=== PATIENT | female | born 1960 | race Caucasian/White ===

== ENCOUNTER 2017-09-28 02:46 | Observation (INO) | payer BC ==
[~2017-09-28] VITALS: Ht 154.9 cm; Wt 94.3 kg
[~2017-09-28 02:46] MED LIST: ONDA4TAB10 PO
--- NOTE | 2017-09-28 03:04 | ED.ADGEN ---
Past History Past Medical History: Anxiety, Hypertension (VASYL VINES MD) Past Surgical History: , Hysterectomy (VASYL VINES MD) Alcohol Use: None Drug Use: None (VASYL VINES MD) Adult General Chief Complaint Chief Complaint " I have anxiety.." .." I ve been off my meds for about two months.." " I worried that I am going to in my sleep and my grand daughter will be all alone in the house with me in the other room.. I ve had some abd. pain. .. and nausea and 4 watery stool... ".. Now I am vomiting..." (VASYL VINES MD) HPI HPI Patient is a 43 year old female who presents with above hx and complaints of lower abd. pain with 4 episodes of diarrhea tonight. Patient reports normal brown stools before the onset of diarrhea. Patient did eat a moreno's pie at 1800 hrs. today and grand daughter ate same food with no ill effects. Denies and intake of bad food. No recent travel or specific ill contacts. Patient has been in country approximately 32 years, after immigration from [place].. Does have a history of hypertension and anxiety disorder. She has been off her depression and anxiety meds for the past 2 months. Patient normally follows with Dr. Harry. (VASYL VINES MD) Review of Systems Review of Systems Constitutional: Denies fever or chills [] Eyes: Denies change in visual acuity, redness, or eye pain [] HENT: Denies nasal congestion or sore throat [] Respiratory: Denies cough or shortness of breath [] Cardiovascular: No additional information not addressed in HPI [] GI: Complaints of abdominal pain, nausea, vomiting and diarrhea [] : Denies dysuria or hematuria [] Musculoskeletal: Denies back pain or joint pain [] Integument: Denies rash or skin lesions [] Neurologic: Denies headache, focal weakness or sensory changes [] Endocrine: Denies polyuria or polydipsia [] All other systems were reviewed and found to be within normal limits, except as documented in this note. (VASYL VINES MD) Family History Family History Noncontributory (VASYL VINES MD) Current Medications Current Medications Current Medications Medications (Trade) Dose Ordered Sig/Kenia Start Time Stop Time Status Last Admin Dose Admin Citalopram Hydrobromide (CeleXA) 20 mg 1X ONCE 09/28/17 05:00 09/28/17 05:01 DC Diphenhydramine HCl (Benadryl) 50 mg 1X ONCE 09/28/17 05:45 09/28/17 05:52 DC 09/28/17 05:40 50 MG Famotidine (Pepcid Vial) 20 mg 1X ONCE 09/28/17 03:45 09/28/17 03:46 DC 09/28/17 03:42 20 MG Iohexol (Omnipaque 240 Mg/ml) 50 ml 1X ONCE 09/28/17 04:45 09/28/17 04:46 DC 09/28/17 04:45 50 ML Iohexol (Omnipaque 300 Mg/ml) 75 ml 1X ONCE 09/28/17 04:45 09/28/17 04:46 DC 09/28/17 06:12 75 ML Lactated Ringer's 1,000 ml @ 1,000 mls/hr Q1H 09/28/17 03:30 09/28/17 04:29 DC 09/28/17 03:39 1,000 MLS/HR Lorazepam (Ativan) 2 mg 1X ONCE 09/28/17 03:45 09/28/17 03:46 DC 09/28/17 03:43 2 MG Ondansetron HCl (Zofran) 4 mg PRN Q4HRS PRN 09/28/17 07:15 09/29/17 07:14 Oxycodone/ Acetaminophen (Percocet 5/325) 2 tab 1X ONCE 09/28/17 03:45 09/28/17 03:46 DC Promethazine HCl (Phenergan Im) 25 mg 1X ONCE 09/28/17 05:45 09/28/17 05:52 DC 09/28/17 05:43 25 MG Promethazine HCl (Phenergan) 25 mg STK-MED ONCE 09/28/17 05:37 09/28/17 05:38 DC Sodium Chloride 1,000 ml @ 100 mls/hr Q10H 09/28/17 07:06 09/29/17 07:05 (CHRIS CARTAGENA MD) Allergies Allergies Allergies Coded Allergies Type Severity Reaction Last Updated Verified No Known Allergies Allergy Unknown 09/28/17 Yes (CHRIS CARTAGENA MD) Physical Exam Physical Exam Constitutional: moderate acute emotional distress, non-toxic appearance. [] HENT: Normocephalic, atraumatic, bilateral external ears normal, oropharynx moist, no oral exudates, nose normal. [] Eyes: PERRLA, EOMI, conjunctiva normal, no discharge. [] Neck: Normal range of motion, no tenderness, supple, no stridor. [] Cardiovascular: Tachycardia Heart rate regular rhythm, no murmur [] Lungs & Thorax: Bilateral breath sounds clear to auscultation [] Abdomen: Bowel sounds hyperactive, soft, mild pelvic tenderness, no masses, no pulsatile masses. Old surgical scars. Declines rectal at this time. Skin: Warm, dry, no erythema, no rash. [] Back: No tenderness, no CVA tenderness. [] Extremities: No tenderness, no cyanosis, no clubbing, ROM intact, no edema. [] Neurologic: Alert and oriented X 3, normal motor function, normal sensory function, no focal deficits noted. [] Psychologic: Affect very anxious, judgement normal, mood depressed. (VASYL VINES MD) Current Patient Data Vital Signs Vital Signs Date Time Temp Pulse Resp B/P (MAP) Pulse Ox O2 Delivery O2 Flow Rate FiO2 09/28/17 06:59 92 18 166/86 (112) 94 Room Air 09/28/17 02:46 98.1 (CHRIS CARTAGENA MD) Lab Results Laboratory Tests Test 09/28/17 03:13 09/28/17 03:18 09/28/17 03:47 Urine Collection Type Unknown Urine Color Yellow Urine Clarity Hazy Urine pH 7.5 Urine Specific [place] 1.020 Urine Protein 30 mg/dl (NEG-TRACE) Urine Glucose (UA) Neg mg/dL (NEG) Urine Ketones (Stick) Trace mg/dL (NEG) Urine Blood Neg (NEG) Urine Nitrite Neg (NEG) Urine Bilirubin Neg (NEG) Urine Urobilinogen Dipstick 1 mg/dL (0.2 mg/dL) Urine Leukocyte Esterase Neg (NEG) Urine RBC Occ /HPF (0-2) Urine WBC Occ /HPF (0-4) Urine Squamous Epithelial Cells Few /LPF Urine Amorphous Sediment Present /HPF Urine Bacteria Mod /HPF (0-FEW) Urine Mucus Slight /LPF White Blood Count 10.0 x10^3/uL (4.0-11.0) Red Blood Count 4.71 x10^6/uL (3.50-5.40) Hemoglobin 13.9 g/dL (12.0-15.5) Hematocrit 41.2 % (36.0-47.0) Mean Corpuscular Volume 88 fL (79-100) Mean Corpuscular Hemoglobin 30 pg (25-35) Mean Corpuscular Hemoglobin Concent 34 g/dL (31-37) Red Cell Distribution Width 14.0 % (11.5-14.5) Platelet Count 338 x10^3/uL (140-400) Neutrophils (%) (Auto) 85 % (31-73) H Lymphocytes (%) (Auto) 10 % (24-48) L Monocytes (%) (Auto) 4 % (0-9) Eosinophils (%) (Auto) 1 % (0-3) Basophils (%) (Auto) 1 % (0-3) Neutrophils # (Auto) 8.5 x10^3uL (1.8-7.7) H Lymphocytes # (Auto) 0.9 x10^3/uL (1.0-4.8) L Monocytes # (Auto) 0.4 x10^3/uL (0.0-1.1) Eosinophils # (Auto) 0.1 x10^3/uL (0.0-0.7) Basophils # (Auto) 0.1 x10^3/uL (0.0-0.2) Sodium Level 137 mmol/L (136-145) Potassium Level 3.8 mmol/L (3.5-5.1) Chloride Level 102 mmol/L (98-107) Carbon Dioxide Level 25 mmol/L (21-32) Anion Gap 10 (6-14) Blood Urea Nitrogen 19 mg/dL (7-20) Creatinine 0.7 mg/dL (0.6-1.0) Estimated GFR (Cockcroft-Gault) 85.6 Glucose Level 139 mg/dL (70-99) H Calcium Level 8.7 mg/dL (8.5-10.1) Total Bilirubin 0.4 mg/dL (0.2-1.0) Direct Bilirubin 0.1 mg/dL (0.0-0.2) Aspartate Amino Transferase (AST) 18 U/L (15-37) Alanine Aminotransferase (ALT) 34 U/L (14-59) Alkaline Phosphatase 89 U/L (46-116) Troponin I Quantitative < 0.017 ng/mL (0-0.055) Total Protein 7.5 g/dL (6.4-8.2) Albumin 3.8 g/dL (3.4-5.0) Lipase 159 U/L (73-393) Influenza Type A (Rapid) Negative (NEGATIVE) Influenza Type B (Rapid) Negative (NEGATIVE) (CHRIS CARTAGENA MD) Lab Results Laboratory Tests Test 09/28/17 03:13 09/28/17 03:18 09/28/17 03:47 Urine Collection Type Unknown Urine Color Yellow Urine Clarity Hazy Urine pH 7.5 Urine Specific [place] 1.020 Urine Protein 30 mg/dl (NEG-TRACE) Urine Glucose (UA) Neg mg/dL (NEG) Urine Ketones (Stick) Trace mg/dL (NEG) Urine Blood Neg (NEG) Urine Nitrite Neg (NEG) Urine Bilirubin Neg (NEG) Urine Urobilinogen Dipstick 1 mg/dL (0.2 mg/dL) Urine Leukocyte Esterase Neg (NEG) Urine RBC Occ /HPF (0-2) Urine WBC Occ /HPF (0-4) Urine Squamous Epithelial Cells Few /LPF Urine Amorphous Sediment Present /HPF Urine Bacteria Mod /HPF (0-FEW) Urine Mucus Slight /LPF White Blood Count 10.0 x10^3/uL (4.0-11.0) Red Blood Count 4.71 x10^6/uL (3.50-5.40) Hemoglobin 13.9 g/dL (12.0-15.5) Hematocrit 41.2 % (36.0-47.0) Mean Corpuscular Volume 88 fL (79-100) Mean Corpuscular Hemoglobin 30 pg (25-35) Mean Corpuscular Hemoglobin Concent 34 g/dL (31-37) Red Cell Distribution Width 14.0 % (11.5-14.5) Platelet Count 338 x10^3/uL (140-400) Neutrophils (%) (Auto) 85 % (31-73) H Lymphocytes (%) (Auto) 10 % (24-48) L Monocytes (%) (Auto) 4 % (0-9) Eosinophils (%) (Auto) 1 % (0-3) Basophils (%) (Auto) 1 % (0-3) Neutrophils # (Auto) 8.5 x10^3uL (1.8-7.7) H Lymphocytes # (Auto) 0.9 x10^3/uL (1.0-4.8) L Monocytes # (Auto) 0.4 x10^3/uL (0.0-1.1) Eosinophils # (Auto) 0.1 x10^3/uL (0.0-0.7) Basophils # (Auto) 0.1 x10^3/uL (0.0-0.2) Sodium Level 137 mmol/L (136-145) Potassium Level 3.8 mmol/L (3.5-5.1) Chloride Level 102 mmol/L (98-107) Carbon Dioxide Level 25 mmol/L (21-32) Anion Gap 10 (6-14) Blood Urea Nitrogen 19 mg/dL (7-20) Creatinine 0.7 mg/dL (0.6-1.0) Estimated GFR (Cockcroft-Gault) 85.6 Glucose Level 139 mg/dL (70-99) H Calcium Level 8.7 mg/dL (8.5-10.1) Total Bilirubin 0.4 mg/dL (0.2-1.0) Direct Bilirubin 0.1 mg/dL (0.0-0.2) Aspartate Amino Transferase (AST) 18 U/L (15-37) Alanine Aminotransferase (ALT) 34 U/L (14-59) Alkaline Phosphatase 89 U/L (46-116) Troponin I Quantitative < 0.017 ng/mL (0-0.055) Total Protein 7.5 g/dL (6.4-8.2) Albumin 3.8 g/dL (3.4-5.0) Lipase 159 U/L (73-393) Influenza Type A (Rapid) Negative (NEGATIVE) Influenza Type B (Rapid) Negative (NEGATIVE) (VASYL VINES MD) EKG EKG My interpretation EKG shows a sinus rhythm at 78 bpm. No acute morphology appreciated.[] (VASYL VINES MD) Radiology/Procedures Radiology/Procedures My interpretation acute abdomen film shows no acute cardiopulmonary findings. No free air in the diaphragm. Some increased stool. Nonspecific bowel gas pattern.[] (VASYL VINES MD) Radiology/Procedures [address] [address] IMAGING REPORT Signed PATIENT: DEBBIE WERNER ACCOUNT: [id number] : 1960 LOCATION: ER AGE: 57 SEX: F EXAM STATUS: REG ER ORD. PHYSICIAN: VASYL VINES MD REASON: abd. pain, n/v PROCEDURE: CT ABD PELV W/ORAL&IV CONTRAST CT abdomen and pelvis with contrast 09/28/2017 Clinical indication: Abdominal pain, nausea, vomiting and diarrhea. COMPARISON: None. TECHNIQUE: Multiple CT images of the abdomen and pelvis were obtained following the intravenous administration of 75 mL Omnipaque 300. *One or more of the following individualized dose reduction techniques were utilized for this examination: 1. Automated exposure control. 2. Adjustment of the mA and/or kV according to patient size. 3. Use of iterative reconstruction technique. FINDINGS: Mild cardiomegaly. Liver, gallbladder, spleen, adrenal glands, pancreas and kidneys are unremarkable. Abdominal aorta is normal in caliber. No retroperitoneal or mesenteric lymphadenopathy. There is a small hiatal hernia. The appendix is normal in appearance. There is a right periumbilical hernia containing a nonobstructed loop of the mid transverse colon and omental fat. No abdominal free fluid. No pneumoperitoneum. Mildly distended and unopacified urinary bladder is unremarkable. Prior hysterectomy. The vaginal cuff is unremarkable. No abdominal or pelvic lymphadenopathy. There is partial ankylosis of T11 and T12 vertebral bodies. There are no destructive osseous lesions. IMPRESSION: Right periumbilical hernia containing nonobstructed loop of mid transverse colon. Electronically signed by: Viktoriya Medeiros MD (09/28/2017 6:47 AM) [facility] DICTATED AND SIGNED BY: VIKTORIYA MEDEIROS MD DATE: 09/28/17 0637 CC: CORNELIA HARRY MD; VASYL VINES MD; CHRIS CARTAGENA MD ~ (CHRIS CARTAGENA MD) Course & Med Decision Making Course & Med Decision Making Pertinent Labs and Imaging studies reviewed. (See chart for details) Pt. still vomiting at 0600. Unable to tolerate contrast. Will give Phenergan and Benadryl. CT pending. Check out to Dr. Cartagena at 0600. [] (VASYL VINES MD) Course & Med Decision Making Evaluation of patient in ER showed 57-year-old female patient with nausea and vomiting and diarrhea. Patient care transferred to [place] for pending CT of abdomen that showed right inguinal hernia with fat tissue without sign of obstruction. Dr. Harry consulted at 0705 and accepted admission for observation. Patient informed about plan of care and needs for admission. (CHRIS CARTAGENA MD) Final Impression Final Impression 1. Abdomen Pain 2. Anxiety[] 3. Nausea and vomiting 4. Elevated Glucose 5. Hx. HTN Problems: (VASYL VINES MD) Dragon Disclaimer Dragon Disclaimer This electronic medical record was generated, in whole or in part, using a voice recognition dictation system. (VASYL VINES MD) Departure: Impression: Primary Impression: Acute gastroenteritis Disposition: ADMITTED INPATIENT (At 0705) Admitting Physician: Cornelia Harry (CHRIS CARTAGENA MD) Condition: IMPROVED VASYL VINES MD Sep 28, 2017 03:04 CHRIS CARTAGENA MD Sep 28, 2017 06:42
[2017-09-28] MEDS ORDERED: IV RINGERS SOLUTION,LACTATED 1,000 ML IV SCH (03:30)
[2017-09-28 03:36] LABS: BASO # 0.1 x10^3/uL (0.0-0.2); BASO % 1 % (0-3); EOS # 0.1 x10^3/uL (0.0-0.7); EOS % 1 % (0-3); HEMATOCRIT 41.2 % (36.0-47.0); HEMOGLOBIN 13.9 g/dL (12.0-15.5); LYMPH # 0.9 x10^3/uL (1.0-4.8); LYMPH % 10 % (24-48); MEAN CORPUSCULAR HEMOGLOBIN 30 pg (25-35); MEAN CORPUSCULAR HGB CONC 34 g/dL (31-37); MEAN CORPUSCULAR VOLUME 88 fL (79-100); MONO # 0.4 x10^3/uL (0.0-1.1); MONO % 4 % (0-9); NEUT # 8.5 x10^3uL (1.8-7.7); NEUT % 85 % (31-73); PLATELET COUNT 338 x10^3/uL (140-400); RED BLOOD COUNT 4.71 x10^6/uL (3.50-5.40)
[2017-09-28 03:44] LABS: BACTERIA,URINE MOD /HPF (0-FEW); BILIRUBIN,URINE NEG (NEG); CLARITY,URINE HAZY; COLOR,URINE YELLOW; GLUCOSE,URINE NEG (NEG); NITRITE,URINE NEG (NEG); RBC,URINE OCC /HPF (0-2); SQUAMOUS EPITHELIAL CELL,UR FEW /LPF; UROBILINOGEN,URINE 1 mg/dL (0.2 mg/dL); WBC,URINE OCC /HPF (0-4)
[2017-09-28 03:45] LABS: AMORPHOUS SEDIMENT,UR PRESENT /HPF
[2017-09-28] MEDS ORDERED: ONDANSETRON PF 4 MG/2 ML VIAL. IV ONE ×2 (03:45→04:30)
[2017-09-28] MEDS ORDERED: oxyCODONE/APAP 5/325 1 TAB TABLET PO ONE (03:45)
[2017-09-28] MEDS ORDERED: FAMOTIDINE 20 MG/2 ML VIAL IVP ONE (03:45)
[2017-09-28] MEDS ORDERED: LORazepam 2 MG/ML VIAL IV ONE (03:45)
[2017-09-28 03:48] LABS: ALBUMIN 3.8 g/dL (3.4-5.0); CALCIUM 8.7 mg/dL (8.5-10.1); CREATININE 0.7 mg/dL (0.6-1.0); DIRECT BILIRUBIN 0.1 mg/dL (0.0-0.2); GFR 85.6; POTASSIUM 3.8 mmol/L (3.5-5.1); TOTAL BILIRUBIN 0.4 mg/dL (0.2-1.0); TOTAL PROTEIN 7.5 g/dL (6.4-8.2)
[2017-09-28 04:31] LABS: INFLUENZA A PATIENT NEGATIVE (NEGATIVE); INFLUENZA B PATIENT NEGATIVE (NEGATIVE)
--- NOTE | 2017-09-28 04:37 | EKG ---
[address] [address] Test Date: 2017-09-28 Test Time: 03:35:51 Pat Name: DEBBIE WERNER Department: Room: Gender: F Rn Social Work: : 1960 Requested By: VASYL VINES Order Number: [id number] Reading MD: Measurements Intervals [place] Rate: 78 P: 46 NM: 168 QRS: 27 QRSD: 86 T: 21 QT: 374 QTc: 430 Interpretive Statements SINUS RHYTHM NORMAL ECG RI6.01 No previous ECG available for comparison
[2017-09-28] MEDS ORDERED: IOHEXOL 300 MG/ML 75 ML VIAL. IV ONE (04:45)
[2017-09-28] MEDS ORDERED: IOHEXOL 240 MG/ML 50ML VIAL. PO ONE (04:45)
[2017-09-28] MEDS ORDERED: CITALOPRAM 20 MG TABLET. PO ONE (05:00)
[2017-09-28] MEDS ORDERED: PROMETHAZINE 25 MG/ML VIAL IV ONE (05:37)
[2017-09-28] MEDS ORDERED: diphenhydrAMINE 50 MG/ML VIAL IVP ONE (05:45)
[2017-09-28] MEDS ORDERED: PROMETHAZINE IM 25 MG/ML VIAL IM ONE (05:45)
--- NOTE | 2017-09-28 06:50 | RAD ---
CT abdomen and pelvis with contrast 09/28/2017 Clinical indication: Abdominal pain, nausea, vomiting and diarrhea. COMPARISON: None. TECHNIQUE: Multiple CT images of the abdomen and pelvis were obtained following the intravenous administration of 75 mL Omnipaque 300. *One or more of the following individualized dose reduction techniques were utilized for this examination: 1. Automated exposure control. 2. Adjustment of the mA and/or kV according to patient size. 3. Use of iterative reconstruction technique. FINDINGS: Mild cardiomegaly. Liver, gallbladder, spleen, adrenal glands, pancreas and kidneys are unremarkable. Abdominal aorta is normal in caliber. No retroperitoneal or mesenteric lymphadenopathy. There is a small hiatal hernia. The appendix is normal in appearance. There is a right periumbilical hernia containing a nonobstructed loop of the mid transverse colon and omental fat. No abdominal free fluid. No pneumoperitoneum. Mildly distended and unopacified urinary bladder is unremarkable. Prior hysterectomy. The vaginal cuff is unremarkable. No abdominal or pelvic lymphadenopathy. There is partial ankylosis of T11 and T12 vertebral bodies. There are no destructive osseous lesions. IMPRESSION: Right periumbilical hernia containing nonobstructed loop of mid transverse colon. Electronically signed by: Nic Medeiros MD (09/28/2017 6:47 AM) [facility]
[2017-09-28] MEDS ORDERED: IV NORMAL SALINE 1,000ML 1,000 ML IV SCH (07:06)
[2017-09-28] MEDS ORDERED: ONDANSETRON PF 4 MG/2 ML VIAL. IV PRN (07:15)
--- NOTE | 2017-09-28 07:23 | RAD ---
Acute abdomen series with chest, 3 views, 09/28/2017: History: Abdominal pain, nausea and vomiting The abdominal gas pattern is unremarkable without evidence of obstruction. No free air is present in the abdomen. There is no evidence of organomegaly. There is a small radiopacity projected over the right paraspinous region. The subsequent CT study shows that this is a phlebolith rather than a ureteral calculus. There are mild scattered degenerative changes in the spine. The heart size is normal. The lungs are clear. IMPRESSION: No acute abdominal abnormality is detected.
[2017-09-28] MEDS ORDERED: VENLAFAXINE XR 37.5 MG CAP.ER.24H. PO SCH (09:00)
[2017-09-28] MEDS ORDERED: LORazepam 0.5 MG TABLET PO PRN (09:00)
--- NOTE | 2017-09-28 09:35 | HP ---
ADMIT DATE: 09/28/2017 HISTORY OF PRESENT ILLNESS: A 57-year-old female came in through the Emergency Room. The patient states she has been off her medications last 2 weeks, she has been having extreme anxiety attacks, feeling that she is going to in her sleep and leave her granddaughter alone. She did have some nausea, vomiting and diarrhea 4 episodes thereof, but she is extremely anxious, apparently an immigrant. She is an immigrant from [place], although it has been 32 years. She still has somewhat of a [place] accent. Has a history of hypertension and anxiety. PAST MEDICAL HISTORY: Positive for anxiety and hypertension. She has not listed any home medications. ALLERGIES: She has no known allergies. SOCIAL HISTORY: The patient denies smoking, alcohol or drug use. She is a full code. FAMILY HISTORY: Positive for heart disease. PAST SURGICAL HISTORY: and hysterectomy. REVIEW OF SYSTEMS: Denies chest pain, shortness of breath. Denies headaches, visual change, blurred vision, double vision. Does have nausea, vomiting but that is relieved. The patient does have some abdominal discomfort with diarrhea. Neurologically, the patient is stable there, baseline with anxiety. PHYSICAL EXAMINATION: VITAL SIGNS: The patient's blood pressure anywhere from 166-184, respiratory rate 18, pulse 93, oxygen saturation anywhere from 100 down to 93, afebrile. HEENT: The patient's head was atraumatic, normocephalic. Eyes, PERRLA without jaundice. Mouth and throat: Poor dentition. NECK: Supple without JVD or thyromegaly. LUNGS: Diminished throughout, poor movement of air. CARDIOVASCULAR: Regular sinus rhythm, S1, S2, without murmur, rub, thrill, or extra heart sound. ABDOMEN: Soft, nontender, protuberant, but no rebounding or guarding. Positive bowel sounds, no hepatosplenomegaly was noted. EXTREMITIES: No clubbing, cyanosis or edema. NEUROLOGIC: The patient was alert and oriented x 3, somewhat anxious appearing. Denies depression, denies any suicidal or homicidal ideation. LABORATORY DATA: The patient's CBC was basically all within normal limits. Chemistries were within normal limits. Cardiac enzymes negative. D-dimer, TSH pending. UA unremarkable. Serology negative. IMPRESSION: Severe anxiety attack, possible gastroenteritis, viral syndrome. PLAN: The patient will be started on some Effexor XR, lorazepam, wait for other tests to be performed and see whether or not we find an obvious answer for her anxiety attacks medically speaking. CORNELIA HARRY MD DR: MYRIAM/fely JOB#: [id number] / [id number]
[2017-09-28 11:27] VITALS: BP 152/96
[2017-09-28] MEDS ORDERED: LISI-334 PO (11:54)
[2017-09-28] MEDS ORDERED: FLUT16SP21 NAS (11:54)
[2017-09-28] MEDS ORDERED: CITA20TA5 PO (11:54)
--- NOTE | 2017-09-28 13:00 | NUR ---
The patient, DEBBIE WERNER, 57 y/o, F admitted by CORNELIA HARRY MD, was given written information regarding hospital policies, unit procedures and contact persons. Patient admitted to room 117 from the ED and arrived at approx. 0900 via EMS. Valuables were checked and left in room with patient. Vital signs assessed and patient oriented to the room.
--- NOTE | 2017-09-28 13:14 | NUR ---
Discharge Note: SANDEEP WERNER Discharge instructions and discharge home medications reviewed with Patient and a copy given. All questions have been answered and understanding verbalized. The following instructions and handouts were given: MEDICATIONS, FOLLOW UP INSTRUCTIONS, AND EDUCATIONAL HANDOUTS GIVEN. Discontinued lines and drains: PERIPHERAL IV DISCONTINUED WITH NO COMPLICATIONS. Patient discharged to HOME with SON via PRIVATE FAMILY VEHICLE.
[2017-09-28] MEDS ORDERED: HEPARIN PF for SUB-Q USE 5,000 UNIT/0.5 ML VIAL. SQ SCH (14:00)
== END 2017-09-28 13:10 | disposition home or self-care (01) ==
LOC: ER 02:46 → 1 SOUTH 07:25
PROVIDERS: ADMIT Family Medicine; ATTEND Family Medicine
DX: F41.1 Generalized anxiety disorder (principal); I10 Essential (primary) hypertension; Z90.710 Acquired absence of both cervix and uterus; Z82.49 Family history of ischemic heart disease and other diseases of the circulatory system
CPT/HCPCS: 36415; 74022; 74177; 80048; 80076; 81001; 83690; 84443; 84484; 85025; 85379; 87086; 87804; 93005; 96361; 96372; 96374; 96375; 96376; 99285; G0378; J1200; J2060; J2405; J2550; J7120; Q9966; Q9967; S0028; G0379; J7030

== ENCOUNTER → 2018-06-18 | Day surgery (SDC) | payer BC ==
[~2018-06-18] MED LIST changes: +ALBU8.5H8 INH; +ALBUTEROL SULFATE 2.5 MG/3 ML NEBU. NEB PRN; +ATROPINE 0.5 MG/5 ML DISP.SYRIN. IV PRN; +CETI10TA22 PO; +CITA20TA6 PO; +FLUT16SP21 NAS; +IV RINGERS SOLUTION,LACTATED 1,000 ML IV SCH; +LIDOCAINE 2% PF Vial for OR 5 ML VIAL. ONE; +LISI-334 PO; +NALOXONE 0.4 MG/ML VIAL. IV PRN; +ONDANSETRON PF 4 MG/2 ML VIAL. IV PRN; +PROPOFOL 40 ML IV ONE
[2018-06-18 16:28] VITALS: BP 143/89
== END | disposition home or self-care (01) ==
LOC: SURG 13:46
PROVIDERS: ATTEND Internal Medicine Gastroenterology
DX: K22.2 Esophageal obstruction (principal); K22.8 Other specified diseases of esophagus; Z79.899 Other long term (current) drug therapy; I10 Essential (primary) hypertension; F41.1 Generalized anxiety disorder; Z87.442 Personal history of urinary calculi; M19.90 Unspecified osteoarthritis, unspecified site; Z90.710 Acquired absence of both cervix and uterus; Z98.890 Other specified postprocedural states; Z82.0 Family history of epilepsy and other diseases of the nervous system; Z72.89 Other problems related to lifestyle; Z88.8 Allergy status to other drugs, medicaments and biological substances; Z91.010 Allergy to peanuts
CPT/HCPCS: 43239; 43249; J7120; 43450

== ENCOUNTER 2019-09-03 21:27 | Emergency (ER) | payer BC ==
[~2019-09-03] VITALS: Ht 154.9 cm; Wt 94.6 kg
[~2019-09-03 21:27] MED LIST changes: +ALBU2.5V8 INH; -ALBU8.5H8 INH; -ALBUTEROL SULFATE 2.5 MG/3 ML NEBU. NEB PRN; -ATROPINE 0.5 MG/5 ML DISP.SYRIN. IV PRN; -CETI10TA22 PO; +CETI10TA24 PO; -IV RINGERS SOLUTION,LACTATED 1,000 ML IV SCH; -LIDOCAINE 2% PF Vial for OR 5 ML VIAL. ONE; -NALOXONE 0.4 MG/ML VIAL. IV PRN; -ONDANSETRON PF 4 MG/2 ML VIAL. IV PRN; -PROPOFOL 40 ML IV ONE
[2019-09-03] MEDS ORDERED: IV NORMAL SALINE 1,000ML 1,000 ML IV SCH (21:47)
[2019-09-03] MEDS ORDERED: ONDANSETRON PF 4 MG/2 ML VIAL. IVP ONE (22:00)
[2019-09-03 22:20] LABS: BASO # 0.1 x10^3/uL (0.0-0.2); BASO % 1 % (0-3); EOS # 0.3 x10^3/uL (0.0-0.7); EOS % 5 % (0-3); HEMATOCRIT 41.4 % (36.0-47.0); HEMOGLOBIN 13.5 g/dL (12.0-15.5); LYMPH # 1.3 x10^3/uL (1.0-4.8); LYMPH % 22 % (24-48); MEAN CORPUSCULAR HEMOGLOBIN 29 pg (25-35); MEAN CORPUSCULAR HGB CONC 33 g/dL (31-37); MEAN CORPUSCULAR VOLUME 88 fL (79-100); MONO # 0.6 x10^3/uL (0.0-1.1); MONO % 10 % (0-9); NEUT # 3.7 x10^3uL (1.8-7.7); NEUT % 63 % (31-73); PLATELET COUNT 300 x10^3/uL (140-400); RED BLOOD COUNT 4.72 x10^6/uL (3.50-5.40); RED CELL DISTRIBUTION WIDTH 14.1 % (11.5-14.5); WHITE BLOOD COUNT 5.8 x10^3/uL (4.0-11.0)
[2019-09-03 22:28] LABS: ALBUMIN 3.5 g/dL (3.4-5.0); ALBUMIN/GLOBULIN RATIO 1.1 (1.0-1.7); CALCIUM 8.6 mg/dL (8.5-10.1); CREATININE 0.9 mg/dL (0.6-1.0); GFR 63.9; TOTAL BILIRUBIN 0.2 mg/dL (0.2-1.0); TOTAL PROTEIN 6.7 g/dL (6.4-8.2)
[2019-09-03 22:58] LABS: CLARITY,URINE CLEAR; COLOR,URINE YELLOW
[2019-09-03 22:59] LABS: BACTERIA,URINE 0 /HPF (0-FEW); BILIRUBIN,URINE NEG (NEG); GLUCOSE,URINE NEG (NEG); NITRITE,URINE NEG (NEG); RBC,URINE 0 /HPF (0-2); SQUAMOUS EPITHELIAL CELL,UR OCC /LPF; UROBILINOGEN,URINE 0.2 mg/dL (0.2 mg/dL); WBC,URINE OCC /HPF (0-4)
[2019-09-03] MEDS ORDERED: CONTRAST GIVEN MC PRN (23:30)
[2019-09-03] MEDS ORDERED: IOHEXOL 300 MG/ML 75 ML VIAL. IV ONE (23:45)
--- NOTE | 2019-09-04 00:03 | RAD ---
EXAM: CT Abdomen and Pelvis with IV contrast CLINICAL HISTORY: Lower abdomen pain, nausea, diarrhea. COMPARISON: 09/28/2017 TECHNIQUE: Helical CT of the abdomen and pelvis was performed following the administration of intravenous contrast. Oral contrast was administered. Axial, coronal and sagittal reformatted images were generated. PQRS compliance statement - One or more of the following individualized dose reduction techniques were utilized for this study: 1. Automated exposure control 2. Adjustment of the mA and/or kV according to patient size 3. Use of iterative reconstruction technique FINDINGS: Respiratory motion artifact limits evaluation. Lower chest: Linear opacities in the lower lobes likely scarring/atelectasis. Abdomen and Pelvis: No focal liver lesion. Liver is borderline enlarged measuring 18.6 cm in length. Gallbladder is contracted. No biliary duct dilatation. Pancreas is unremarkable. Spleen is normal in appearance. Adrenal glands are unremarkable. Symmetric nephrograms. No focal renal lesion. No hydronephrosis. No hydroureter. Bladder is unremarkable. Moderate colonic stool content is seen. Appendix is normal. No bowel obstruction. There is a ventral abdominal hernia containing a segment of transverse colon and fat, base of the hernia measures approximately 3.5 cm in diameter. Infiltration is seen about the herniated segment of transverse colon without associated pneumatosis, focal ascites or free intraperitoneal gas. No abdominal or pelvic ascites. Bones: Bone [place] right acetabulum. Degenerative changes of the spine are seen. T11-12 fusion is seen, likely congenital/developmental. IMPRESSION: 1. Inflammatory changes are seen about the herniated segment of transverse colon, without associated pneumatosis, ascites or free intraperitoneal gas. This can be correlated with examination for possible incarceration. 2. No bowel obstruction. 3. Borderline hepatomegaly. Electronically signed by: Frank Cunningham MD (09/04/2019 12:00 AM) [id number]
[2019-09-04 00:15] VITALS: BP 159/72
--- NOTE | 2019-09-04 00:50 | PHYS DOC ---
Past History Past Medical History: Anxiety, Hypertension Past Surgical History: , Hysterectomy Alcohol Use: None Drug Use: None Adult General Chief Complaint Chief Complaint: ABDOMINAL PAIN HPI HPI Patient is a 58-year-old female who presents with complaint of abdominal pain and cramping that started yesterday. Patient indicates that pain is right in deep. Umbilical region. She rates pain at a 7 out of 10. She states that she has had some nausea but no vomiting. She also indicates that she's had no episode of loose stool. She denies any fever. Patient states the pain is worsened with movement. She states that nothing improves the pain.[] Review of Systems Review of Systems Constitutional: Denies fever or chills [] Respiratory: Denies cough or shortness of breath [] Cardiovascular: No additional information not addressed in HPI [] GI: Complains of abdominal pain with nausea. Denies vomiting. Admits to loose stool 1[] Integument: Denies rash or skin lesions [] Neurologic: Denies headache, focal weakness or sensory changes [] All other systems were reviewed and found to be within normal limits, except as documented in this note. Current Medications Current Medications Current Medications Medications (Trade) Dose Ordered Sig/Kenia Start Time Stop Time Status Last Admin Dose Admin Fentanyl Citrate (Fentanyl 2ml Vial) 50 mcg 1X ONCE 09/03/19 22:00 09/03/19 22:15 DC 09/03/19 22:06 50 MCG Info (Do NOT chart on this entry -- for MONITORING) 1 each PRN DAILY PRN 09/03/19 23:30 09/05/19 23:29 Iohexol (Omnipaque 300 Mg/ml) 75 ml 1X ONCE 09/03/19 23:45 09/03/19 23:46 DC 09/03/19 23:33 75 ML Ondansetron HCl (Zofran) 4 mg 1X ONCE 09/03/19 22:00 09/03/19 22:01 DC 09/03/19 22:05 4 MG Sodium Chloride 1,000 ml @ 1,000 mls/hr Q1H 09/03/19 21:47 09/03/19 22:46 DC 09/03/19 22:04 1,000 MLS/HR Allergies Allergies Allergies Coded Allergies Type Severity Reaction Last Updated Verified Estrogens Allergy Intermediate 09/03/19 Yes peanut Allergy Intermediate Rash 09/28/17 Yes Physical Exam Physical Exam Constitutional: Well developed, well nourished, no acute distress, non-toxic appearance. [] HENT: Normocephalic, atraumatic, bilateral external ears normal, oropharynx moist, no oral exudates, nose normal. [] Eyes: PERRLA, EOMI, conjunctiva normal, no discharge. [] Neck: Normal range of motion, no tenderness, supple, no stridor. [] Cardiovascular: Regular rate and rhythm[] Lungs & Thorax: Bilateral breath sounds clear to auscultation [] Abdomen: Bowel sounds normal, soft, with periumbilical tenderness. [] Skin: Warm, dry, no erythema, no rash. [] Extremities: No tenderness, no cyanosis, no clubbing, ROM intact. [] Neurologic: Alert and oriented X 3, no focal deficits noted. [] Current Patient Data Vital Signs Vital Signs Date Time Temp Pulse Resp B/P (MAP) Pulse Ox O2 Delivery O2 Flow Rate FiO2 09/04/19 00:15 72 16 159/72 (101) 98 Room Air 09/03/19 21:34 98.4 Lab Results Laboratory Tests Test 09/03/19 21:54 09/03/19 22:02 White Blood Count 5.8 x10^3/uL (4.0-11.0) Red Blood Count 4.72 x10^6/uL (3.50-5.40) Hemoglobin 13.5 g/dL (12.0-15.5) Hematocrit 41.4 % (36.0-47.0) Mean Corpuscular Volume 88 fL (79-100) Mean Corpuscular Hemoglobin 29 pg (25-35) Mean Corpuscular Hemoglobin Concent 33 g/dL (31-37) Red Cell Distribution Width 14.1 % (11.5-14.5) Platelet Count 300 x10^3/uL (140-400) Neutrophils (%) (Auto) 63 % (31-73) Lymphocytes (%) (Auto) 22 % (24-48) L Monocytes (%) (Auto) 10 % (0-9) H Eosinophils (%) (Auto) 5 % (0-3) H Basophils (%) (Auto) 1 % (0-3) Neutrophils # (Auto) 3.7 x10^3uL (1.8-7.7) Lymphocytes # (Auto) 1.3 x10^3/uL (1.0-4.8) Monocytes # (Auto) 0.6 x10^3/uL (0.0-1.1) Eosinophils # (Auto) 0.3 x10^3/uL (0.0-0.7) Basophils # (Auto) 0.1 x10^3/uL (0.0-0.2) Sodium Level 142 mmol/L (136-145) Potassium Level 4.0 mmol/L (3.5-5.1) Chloride Level 106 mmol/L (98-107) Carbon Dioxide Level 27 mmol/L (21-32) Anion Gap 9 (6-14) Blood Urea Nitrogen 18 mg/dL (7-20) Creatinine 0.9 mg/dL (0.6-1.0) Estimated GFR (Cockcroft-Gault) 63.9 BUN/Creatinine Ratio 20 (6-20) Glucose Level 116 mg/dL (70-99) H Calcium Level 8.6 mg/dL (8.5-10.1) Total Bilirubin 0.2 mg/dL (0.2-1.0) Aspartate Amino Transferase (AST) 16 U/L (15-37) Alanine Aminotransferase (ALT) 21 U/L (14-59) Alkaline Phosphatase 76 U/L (46-116) Total Protein 6.7 g/dL (6.4-8.2) Albumin 3.5 g/dL (3.4-5.0) Albumin/Globulin Ratio 1.1 (1.0-1.7) Lipase 196 U/L (73-393) Urine Collection Type Unknown Urine Color Yellow Urine Clarity Clear Urine pH 7.0 Urine Specific [place] >=1.030 Urine Protein Neg (NEG-TRACE) Urine Glucose (UA) Neg mg/dL (NEG) Urine Ketones (Stick) Neg mg/dL (NEG) Urine Blood Neg (NEG) Urine Nitrite Neg (NEG) Urine Bilirubin Neg (NEG) Urine Urobilinogen Dipstick 0.2 mg/dL (0.2 mg/dL) Urine Leukocyte Esterase Neg (NEG) Urine RBC 0 /HPF (0-2) Urine WBC Occ /HPF (0-4) Urine Squamous Epithelial Cells Occ /LPF Urine Bacteria 0 /HPF (0-FEW) EKG EKG [] Radiology/Procedures Radiology/Procedures [] Impressions: PROCEDURE: CT ABD PELV W/ IV CONTRST ONLY EXAM: CT Abdomen and Pelvis with IV contrast CLINICAL HISTORY: Lower abdomen pain, nausea, diarrhea. COMPARISON: 09/28/2017 TECHNIQUE: Helical CT of the abdomen and pelvis was performed following the administration of intravenous contrast. Oral contrast was administered. Axial, coronal and sagittal reformatted images were generated. PQRS compliance statement - One or more of the following individualized dose reduction techniques were utilized for this study: 1. Automated exposure control 2. Adjustment of the mA and/or kV according to patient size 3. Use of iterative reconstruction technique FINDINGS: Respiratory motion artifact limits evaluation. Lower chest: Linear opacities in the lower lobes likely scarring/atelectasis. Abdomen and Pelvis: No focal liver lesion. Liver is borderline enlarged measuring 18.6 cm in length. Gallbladder is contracted. No biliary duct dilatation. Pancreas is unremarkable. Spleen is normal in appearance. Adrenal glands are unremarkable. Symmetric nephrograms. No focal renal lesion. No hydronephrosis. No hydroureter. Bladder is unremarkable. Moderate colonic stool content is seen. Appendix is normal. No bowel obstruction. There is a ventral abdominal hernia containing a segment of transverse colon and fat, base of the hernia measures approximately 3.5 cm in diameter. Infiltration is seen about the herniated segment of transverse colon without associated pneumatosis, focal ascites or free intraperitoneal gas. No abdominal or pelvic ascites. Bones: Bone island right acetabulum. Degenerative changes of the spine are seen. T11-12 fusion is seen, likely congenital/developmental. IMPRESSION: 1. Inflammatory changes are seen about the herniated segment of transverse colon, without associated pneumatosis, ascites or free intraperitoneal gas. This can be correlated with examination for possible incarceration. 2. No bowel obstruction. 3. Borderline hepatomegaly. Electronically signed by: Frank Selby MD (09/04/2019 12:00 AM) [facility] DICTATED AND SIGNED BY: FRANK SELBY MD DATE: 09/04/19 0000 CC: SHERMAN SALDANA Jr. DO; CORNELIA HARRY MD ~ Course & Med Decision Making Course & Med Decision Making Pertinent Labs and Imaging studies reviewed. (See chart for details) [] Dragon Disclaimer Dragon Disclaimer This electronic medical record was generated, in whole or in part, using a voice recognition dictation system. Departure Departure: Impression: Primary Impression: Incarcerated ventral hernia Disposition: 02 XFER SHT-TRM [facility] Admitting Physician: Kerri Banda Condition: IMPROVED Referrals: CORNELIA HARRY MD (PCP) SHERMAN SALDANA Jr. DO Sep 04, 2019 00:50
== END 2019-09-04 01:33 | disposition short-term general hospital (02) ==
LOC: ER 21:27
DX: K43.6 Other and unspecified ventral hernia with obstruction, without gangrene (principal); R11.0 Nausea; R19.7 Diarrhea, unspecified; F41.9 Anxiety disorder, unspecified; I10 Essential (primary) hypertension; Z90.710 Acquired absence of both cervix and uterus; Z98.890 Other specified postprocedural states; Z91.010 Allergy to peanuts; Z88.2 Allergy status to sulfonamides
CPT/HCPCS: 36415; 74177; 80053; 81001; 83690; 85025; 96361; 96374; 96375; 99285; J2405; J3010; Q9967; J7030

== ENCOUNTER 2021-01-06 01:10 | Emergency (ER) | payer BC, OTHER ==
[~2021-01-06] VITALS: Ht 154.9 cm; Wt 81.4 kg
[~2021-01-06 01:10] MED LIST changes: -CETI10TA24 PO; +CETI10TA74 PO; -LISI-334 PO; +LISI20TA18 PO
--- NOTE | 2021-01-06 01:40 | PHYS DOC ---
Past History Past Medical History: Anxiety, Hypertension Past Surgical History: , Hysterectomy Alcohol Use: None Drug Use: None General Adult EDM: Chief Complaint: NAUSEA/VOMITING/DIARRHEA HPI: HPI: 60-year-old female presents with diarrhea, vomiting, abdominal pain. She states that this started prior to arrival. She has had one episode of diarrhea and two episodes of vomiting. She feels very anxious. She tells me that she has problems with anxiety. Her abdominal pain is a sharp sensation in the epigastric area. Her only abdominal surgical history is a hernia repair. She does not member exactly where it was. She denies fever or chills. No one else at home is sick. Review of Systems: Review of Systems: Constitutional: Denies fever or chills Eyes: Denies change in visual acuity HENT: Denies nasal congestion or sore throat Respiratory: Denies cough or shortness of breath Cardiovascular: Denies chest pain or edema GI: Epigastric abdominal pain, nausea, vomiting, nonbloody diarrhea : Denies dysuria. Decreased urination Musculoskeletal: Denies back pain or joint pain Integument: Denies rash Neurologic: Denies headache, focal weakness or sensory changes Endocrine: Denies polyuria or polydipsia Lymphatic: Denies swollen glands Psychiatric: Anxiety Current Medications: Current Meds: Current Medications Medications (Trade) Dose Ordered Sig/Kenia Start Time Stop Time Status Last Admin Dose Admin Diphenhydramine HCl (Benadryl) 25 mg 1X ONCE 01/06/21 02:00 01/06/21 02:01 Lorazepam (Ativan Inj) 2 mg 1X ONCE 01/06/21 02:00 01/06/21 02:01 Ondansetron HCl (Zofran) 4 mg 1X ONCE 01/06/21 02:00 01/06/21 02:01 Sodium Chloride 1,000 ml @ 1,000 mls/hr 1X ONCE 01/06/21 02:00 01/06/21 02:59 Allergies: Allergies: Allergies Coded Allergies Type Severity Reaction Last Updated Verified Estrogens Allergy Intermediate 09/03/19 Yes peanut Allergy Intermediate Rash 09/28/17 Yes Physical Exam: PE: Constitutional: Well developed, well nourished, obese, no acute distress, non- toxic appearance. [] HENT: Normocephalic, atraumatic, bilateral external ears normal, oropharynx moist, no oral exudates, nose normal. [] Eyes: PERRLA, EOMI, conjunctiva normal, no discharge. [] Neck: Normal range of motion, no tenderness, supple, no stridor. [] Cardiovascular: Heart rate 80, regular rhythm, no murmur [] Lungs & Thorax: Bilateral breath sounds clear to auscultation [] Abdomen: Bowel sounds normal, soft, mild epigastric tenderness, no masses, no pulsatile masses. [] Skin: Warm, dry, no erythema, no rash. [] Back: No tenderness, no CVA tenderness. [] Extremities: No tenderness, no cyanosis, no clubbing, ROM intact, no edema. [] Neurologic: Alert and oriented X 3, normal motor function, normal sensory function, no focal deficits noted. [] Psychologic: Affect normal, judgement normal, mood anxious. [] EKG: EKG: Sinus rhythm, rate 81, normal axis, no ST elevation or depression. [] Radiology/Procedures: Radiology/Procedures: [] Impressions: EXAM: AP View of the chest DATE: 01/06/2021 1:26 AM INDICATION: Reason: SOB / Spl. Instructions: / History: COMPARISON: No Prior FINDINGS: The heart is not enlarged. Mediastinal and hilar contours are normal. Patchy opacities left lung base likely atelectasis. No pleural effusion or pneumothorax. IMPRESSION: Patchy opacities left lung base likely atelectasis. Electronically signed by: Frank Cunningham MD (01/06/2021 1:56 AM) [facility] DI[facility]ATED AND SIGNED BY: FRANK CUNNINGHAM MD DATE: 01/06/21 0155 CC: LATOYA NAZARIO DO; CORNELIA HARRY MD ~MTH0 0 Heart Score: C/O Chest Pain: N/A Risk Factors: Risk Factors: DM, Current or recent (<one month) smoker, HTN, HLP, family history of CAD, obesity. Risk Scores: Score 0 - 3: 2.5% MACE over next 6 weeks - Discharge Home Score 4 - 6: 20.3% MACE over next 6 weeks - Admit for Clinical Observation Score 7 - 10: 72.7% MACE over next 6 weeks - Early Invasive Strategies Course & Med Decision Making: Course & Med Decision Making Pertinent Labs and Imaging studies reviewed. (See chart for details) I have ordered 1 L normal saline, 4 mg of Zofran, 25 mg of Benadryl, add 2 mg of Ativan IV. The patient's labs are unremarkable. Her EKG is unremarkable. Troponin is negative. Chest x-ray shows atelectasis. See official read for more details. CT of the abdomen and pelvis shows periumbilical hernias. 1 has a loop of bowel in it but no evidence of obstruction. See official read for more details. Patient's urinalysis is negative for infection. I suspect the patient's discomfort is related to her hernia. I have made her aware of this and told her she should consider surgical consultation. She will follow-up with her primary care physician. She is stable for discharge at this time. [] Dragon Disclaimer: Dragleslie Disclaimer: This electronic medical record was generated, in whole or in part, using a voice recognition dictation system. Departure Departure: Impression: Primary Impression: Ventral hernia Qualified Codes: K43.9 - Ventral hernia without obstruction or gangrene Additional Impressions: Abdominal pain Qualified Codes: R10.13 - Epigastric pain Anxiety Disposition: 01 HOME / SELF CARE / HOMELESS Condition: STABLE Referrals: CORNELIA HARRY MD (PCP) Patient Instructions: Hernia, [id number] LATOYA NAZARIO DO Jan 06, 2021 01:40
[2021-01-06] MEDS: IV NORMAL SALINE 1,000ML 1,000 ML IV ONE (01:54)
[2021-01-06] MEDS: diphenhydrAMINE 50 MG/ML VIAL IVP ONE (01:58)
--- NOTE | 2021-01-06 01:58 | RAD ---
EXAM: AP View of the chest DATE: 01/06/2021 1:26 AM INDICATION: Reason: SOB / Spl. Instructions: / History: COMPARISON: No Prior FINDINGS: The heart is not enlarged. Mediastinal and hilar contours are normal. Patchy opacities left lung base likely atelectasis. No pleural effusion or pneumothorax. IMPRESSION: Patchy opacities left lung base likely atelectasis. Electronically signed by: Frank Cunningham MD (01/06/2021 1:56 AM) DAVID
[2021-01-06] MEDS: ONDANSETRON PF 4 MG/2 ML VIAL. IVP ONE (01:59)
[2021-01-06] MEDS ORDERED: CONTRAST GIVEN. MC PRN (02:00)
[2021-01-06 02:08] LABS: HEMOGLOBIN ISTAT 13.9 gm/dL; POTASSIUM ISTAT 3.3 mmol/L (3.5-5.0)
[2021-01-06 02:08] LABS: BASO # 0.1 x10^3/uL (0.0-0.2); BASO % 1 % (0-3); EOS # 0.4 x10^3/uL (0.0-0.7); EOS % 3 % (0-3); HEMATOCRIT 42.4 % (36.0-47.0); LYMPH # 2.7 x10^3/uL (1.0-4.8); LYMPH % 20 % (24-48); MEAN CORPUSCULAR HEMOGLOBIN 29 pg (25-35); MEAN CORPUSCULAR HGB CONC 33 g/dL (31-37); MEAN CORPUSCULAR VOLUME 88 fL (79-100); MONO % 7 % (0-9); NEUT # 9.6 x10^3uL (1.8-7.7); NEUT % 70 % (31-73); PLATELET COUNT 340 x10^3/uL (140-400); WHITE BLOOD COUNT 13.8 x10^3/uL (4.0-11.0)
[2021-01-06] MEDS: IOHEXOL 300 MG/ML 75 ML VIAL. IV ONE (02:28)
--- NOTE | 2021-01-06 03:08 | RAD ---
EXAM: CT Abdomen and Pelvis with IV contrast CLINICAL HISTORY: Reason: epigastric abdominal pain Omni 300 75cc / Spl. Instructions: / History: . COMPARISON: 09/03/2019 09/28/2017 TECHNIQUE: Helical CT of the abdomen and pelvis was performed following the administration of intrave nous contrast. Axial, coronal and sagittal reformatted images were generated. PQRS compliance statement - One or more of the following individualized dose reduction techniques wer e utilized for this study: 1. Automated exposure control 2. Adjustment of the mA and/or kV according to patient size 3. Use of iterative reconstruction technique FINDINGS: Lower Chest: Heart is mildly enlarged. Linear opacity lingula and lower lobes likely scarring/atelectasis. Small h iatal hernia. Abdomen and Pelvis: No focal liver lesion. Gallbladder is normal. No biliary duct dilatation. Pancreas is unremarkable. S pleen is normal in appearance. Adrenal glands are unremarkable. Symmetric nephrograms. No focal renal lesion. No hydronephrosis. No hydroureter. Bladder wall thickening may be seen with cystitis. No small or large bowel dilatation. No bowel obstruction. A few colonic diverticula are seen. No evid ence for acute diverticulitis. Series of periumbilical hernias are seen, the superior/left periumbili kim hernia contains a segment of fat and small bowel. No associated obstruction. Appendix is normal. No aggressive osseous lesion is seen. Sclerotic foci likely bone islands. Degenerative changes of the spine. Fusion T11-12 possibly congenital. IMPRESSION: 1. Series of periumbilical hernias are seen, the superior/left periumbilical hernia contains a segme nt of fat and small bowel. No associated obstruction. 2. Colonic diverticula are seen without evidence for acute diverticulitis. 3. Small hiatal hernia. 4. Bladder wall thickening may be seen with cystitis. This can be correlated with urinalysis. Electronically signed by: Frank Cunningham MD (01/06/2021 3:06 AM) STELLA[facility]GAR
[2021-01-06 03:30] LABS: BACTERIA,URINE 0 /HPF (0-FEW); BILIRUBIN,URINE NEG (NEG); CLARITY,URINE CLEAR; COLOR,URINE YELLOW; GLUCOSE,URINE NEG (NEG); NITRITE,URINE NEG (NEG); RBC,URINE 0 /HPF (0-2); SQUAMOUS EPITHELIAL CELL,UR FEW /LPF; UROBILINOGEN,URINE 0.2 mg/dL (0.2 mg/dL); WBC,URINE OCC /HPF (0-4)
--- NOTE | 2021-01-06 03:47 | EKG ---
[address] [address] Test Date: 2021-01-06 Test Time: 01:56:52 Pat Name: DEBBIE WERNER Department: Room: Gender: F [employer] Supervisor: DENNIS : 1960 Requested By: LATOYA NAZARIO Order Number: [id number] Reading MD: Measurements Intervals [place] Rate: 81 P: -13 RI: 162 QRS: 48 QRSD: 88 T: 34 QT: 400 QTc: 465 Interpretive Statements SINUS RHYTHM NORMAL ECG RI6.02 No previous ECG available for comparison
[2021-01-06 03:50] VITALS: BP 153/79
== END 2021-01-06 04:00 | disposition home or self-care (01) ==
LOC: ER 01:10
DX: K43.9 Ventral hernia without obstruction or gangrene (principal); F41.9 Anxiety disorder, unspecified; I10 Essential (primary) hypertension; Z90.710 Acquired absence of both cervix and uterus; Z91.010 Allergy to peanuts
CPT/HCPCS: 36415; 71045; 74177; 80047; 81001; 84484; 85025; 93005; 96361; 96374; 96375; 99285; J1200; J2060; J2405; J7030; Q9967